=== PATIENT | female | born 1990 | race African-American/Black ===

== ENCOUNTER 2016-11-02 19:48 | Emergency (ER) ==
--- NOTE | 2016-11-02 20:21 | PROVIDER DOCUMENTATION ---
HPI-EENT General <Jose Gleason - Last Filed: 11/02/16 21:01> - General Source: patient - History of Present Illness-EENT General EE Location: reports: mouth Quality of Pain: reports: aching Severity: reports: mild Onset/Duration: reports: 24 hours ago Timing: reports: still present Locality of Occurance: Home Similar Symptoms Previously?: Yes Recently seen or treated by another doctor?: Yes (10/08) <Umm Kline - Last Filed: 11/02/16 22:36> - General Chief Complaint: Mouth Pain Stated Complaint: MOUTH PAIN Time Seen by Provider: 11/02/16 20:09 Allergies/Adverse Reactions: Patient Allergies Allergy/AdvReac Type Severity Reaction Status Date / Time Milk Containing Products Allergy RASH Verified 11/02/16 19:53 Home Medications: Home Medication List Medication Instructions Recorded Confirmed Last Taken Type Amoxicillin/Pot Clavulanate 875 mg PO Q12HR #14 tablet 11/02/16 Unknown Rx [Augmentin] Ibuprofen [Motrin] 800 mg PO Q8H PRN PRN #20 tablet 11/02/16 Unknown Rx Omeprazole [Prilosec] 20 mg PO DAILY@0700 #20 capsule 11/02/16 Unknown Rx - History of Present Illness-EE General Nature of Presenting Problem: 26 year old F presents to the ED with a cc of left lower jaw pain. Pt states that she believes she has a possible salivary duct stone. PT states that she had the same thing a few weeks ago. PT also c/o left lower molar dental pain. ( Umm Kline) Review of Systems - Adult - REVIEW OF SYSTEMS - ADULT Constitutional: denies: chills, fever Eyes: reports: no symptoms reported Ears, Nose, Mouth & Throat: reports: mouth/dental pain. denies: mouth swelling Cardiovascular: reports: no symptoms reported Respiratory: denies: cough, shortness of breath Gastrointestinal: denies: nausea, vomiting Genitourinary: reports: no symptoms reported Musculoskeletal: reports: no symptoms reported Integumentary: reports: no symptoms reported Neurological: reports: no symptoms reported Psychiatric: reports: no symptoms reported Endocrine: reports: no symptoms reported Hematologic/Lymphatic: reports: no symptoms reported Allergic/Immunologic: reports: no symptoms reported All Other Systems: Reviewed and Negative <Umm Kline - Last Filed: 11/02/16 22:36> Past History - Adult - PAST MEDICAL HISTORY-ADULT Review of Records: reports: Nursing Assessment Review, Medications Reviewed Major Childhood Illnesses: reports: denies history Cardiovascular: reports: denies history Respiratory: reports: denies history Gastrointestinal: reports: denies history Obstetrical/Gynecological: reports: denies history Genitourinary: reports: denies history Musculoskeletal: reports: denies history Neurological: reports: denies history Psychiatric: reports: denies history Endocrine/Immune: reports: denies history Other Conditions: reports: other (anemia) - PRIOR SURGERIES/PROCEDURES Surgical/Procedure History: reports: none - IMMUNIZATION STATUS Childhood Immunizations: See Nurse Assessment Flu Vaccine: See Nurse Assessment - FAMILY HISTORY Family History: reviewed, not pertinent - SOCIAL HISTORY Smoking: cigarettes, less than 1 pack/day Provider spent 3-5 mins advising pt. on dangers of tobacco.: Discussed manners to quit use, and f/u contacts for add'l counseling. Substance Use: none/never Alcohol Use Frequency: rarely <Umm Kline - Last Filed: 11/02/16 22:36> Physical Exam- EENT - Physical Exam EENT Initial Vital Signs Reviewed: Yes General Appearance: appears well, alert, no apparent distress Throat Exam: dental tenderness (left lower molar), other (soft tissue tenderness of left lower jaw) Respiratory: no respiratory distress Cardiovascular: regular rate, rhythm Integumentary: normal color, normal turgor, warm/dry Psych/Mental Status: normal mood/affect, normal thought content, normal thought process, oriented x 3 <Umm Kline - Last Filed: 11/02/16 22:36> Departure - Departure Time of Disposition Order: 21:01 Certified Medical Emergency: Emergent <Jose Gleason - Last Filed: 11/02/16 21:01> <Umm Kline - Last Filed: 11/02/16 22:36> - Departure DIAGNOSIS: Pain, dental, Painful mouth Disposition: HOME 01 Condition: Stable Additional Instructions: FOLLOW UP WITH DENTIST FOR EVALUATION OF DENTAL PAIN. FOLLOW UP WITH DR. CONNELLY [facility] FOR EVALUATION OF RECURRENT MOUTH / SALIVARY DUCT PAIN. ED Follow Up Instructions: You have been treated by a care provider in the Emergency Department. These instructions are being provided to you so you can have an understanding of how to care for yourself upon discharge. Upon discharge from the Emergency Department, you are responsible for making arrangements for follow-up care by a physician of your choice. Take all prescribed medications as directed. Return to the Emergency Department immediately for any new or worsening symptoms. You may call the Physician Referral phone number at [phone] to obtain a list of Physicians who are taking new patients. Prescriptions: Amoxicillin/Pot Clavulanate [Augmentin] 875 mg PO Q12HR #14 tablet Ibuprofen [Motrin] 800 mg PO Q8H PRN PRN #20 tablet PRN Reason: inflammation Omeprazole [Prilosec] 20 mg PO DAILY@0700 #20 capsule Referrals: Fabricio Connelly MD [STAFF PHYSICIAN] - Forms: Return to School/Parent Work Instructions: Amoxicillin capsules or tablets, Ibuprofen tablets and capsules, Dental Pain, [id number], Omeprazole tablets (OTC) Attestation - Physician/ MARK ANTHONY Attestation Patient care was provided by Advanced Practice Provider:: Yes Advanced Practice Provider:: Jose Gleason Advanced Practice Provider documentation review:: The Mid-level provider documentation, treatment plan and medical decision making was reviewed by the physician who agrees with all treatment and medical decision making by the [facility]. <Jose Gleason - Last Filed: 11/02/16 21:01> - Scribe Verification/Attestation Scribe:: Umm Kline Acting as Scribe for:: Jose Gleason Scribe documention review:: This chart was documented by a scribe and accurately reflects the service the provider performed and the decisions made by the provider. <Umm Kline - Last Filed: 11/02/16 22:36> Physician Attestation - Physician Attestation I, the provider, attest to the following statement:: Jose Gleason Physician documentation Attestation:: This documentation recorded by the scribe accurately reflects the service I personally performed and the decisions made by me. <Jose Gleason - Last Filed: 11/02/16 21:01>
[2016-11-02] MEDS ORDERED: NORCO-5 ONE (21:13)
[2016-11-02] MEDS ORDERED: NORCO-5 PO ONE (21:13)
[2016-11-02 21:17] VITALS: BP 129/87
== END 2016-11-02 21:19 | disposition home or self-care (01) ==
LOC: P.ED 19:48
DX: K08.89 Other specified disorders of teeth and supporting structures (principal); R68.84 Jaw pain; F17.210 Nicotine dependence, cigarettes, uncomplicated; Z71.6 Tobacco abuse counseling
CPT/HCPCS: 99282